=== PATIENT | male | born 1995 | race Caucasian/White ===

== ENCOUNTER 2024-05-02 16:13 | Emergency (ER) | payer SELFPAY ==
[~2024-05-02] VITALS: Ht 167.6 cm; Wt 77.0 kg
[2024-05-02 16:17] VITALS: BP 122/81; PULSE 80; RESP 16; TEMP 98.7; O2SAT 98
== END 2024-05-02 21:49 | disposition left against medical advice (07) ==
LOC: ER 16:13
DX: M79.604 Pain in right leg (principal); M79.605 Pain in left leg
CPT/HCPCS: 99281

== ENCOUNTER 2024-05-03 14:38 | Emergency (ER) | payer MEDICAID ==
[~2024-05-03] VITALS: Ht 167.6 cm; Wt 75.0 kg
[2024-05-03 14:55] VITALS: BP_DIAS 82; O2SAT 98
[2024-05-03 17:00] VITALS: BP_SYST 79; PULSE 69; RESP 17; TEMP 98.2
== END 2024-05-03 17:37 | disposition home or self-care (01) ==
LOC: ER 14:38
DX: M79.604 Pain in right leg (principal); R56.9 Unspecified convulsions
CPT/HCPCS: 73590; 73630; 93971; 99284